=== PATIENT | female | born 1945 | race Caucasian/White ===

== ENCOUNTER 2023-05-07 11:34 | Day surgery (SDC) | payer MEDICARE, BC, SELFPAY ==
[2023-05-07 12:28] VITALS: BP 142/62; PULSE 60; RESP 16; TEMP 36.8; O2SAT 93
[2023-05-07 12:50] VITALS: BMI 37.8
--- NOTE | 2023-05-07 12:50 | ANES.PREOP_ITS ---
General Info Date of Service Date Performed: 05/07/23 Height: 5 ft Weight: 87.9 kg Body Mass Index (BMI): 37.8 Surgical Procedure: Operation Date: 05/07/23 13:40 Proposed Procedure Side Surgeon p Cataract Extraction with IOL Implant Left Andrew Gilliam MD Meds Allergies and Home Medications Allergies Allergy/AdvReac Type Severity Reaction Status Date / Time latex Allergy Intermediate Other (See Verified 05/07/23 12:19 Comment) oxycodone Allergy Intermediate Other (See Verified 05/07/23 12:19 Comment) adhesive bandage Allergy Intermediate Other (See Uncoded 05/07/23 12:19 Comment) Home Medication Medication Instructions Recorded acetaminophen 500 mg capsule 500 mg PO Q4H PRN 05/03/23 amlodipine 2.5 mg tablet 2.5 mg PO DAILY 05/03/23 aspirin 81 mg capsule 81 mg PO DAILY 05/03/23 atorvastatin 20 mg tablet 20 mg PO DAILY 05/03/23 cholecalciferol (vitamin D3) 25 25 mcg PO DAILY 05/03/23 mcg (1,000 unit) tablet (Vitamin D3) dapagliflozin propanediol 10 mg 10 mg PO DAILY 05/03/23 tablet (Farxiga) docusate sodium 100 mg capsule 100 mg PO DAILY 05/03/23 (Colace) duloxetine 30 mg capsule,delayed 30 mg PO DAILY 05/03/23 release (Cymbalta) metoprolol succinate 100 mg 100 mg PO DAILY 05/03/23 capsule sprinkle, ext. release 24 hr omeprazole 40 mg capsule,delayed 40 mg PO DAILY 05/03/23 release potassium chloride 20 mEq 20 meq PO DAILY 05/03/23 tablet,extended release (K-Tab) sacubitril 97 mg-valsartan 103 mg 1 tab PO BID 05/03/23 tablet (Entresto) torsemide 20 mg tablet 20 mg PO DAILY 05/03/23 Current Visit Medications: Current Medications Generic Name Dose Route Start Last Admin Trade Name Freq PRN Reason Stop Dose Admin Acetaminophen 1,000 mg 05/07/23 06:00 Acetaminophen 500 Mg Tab PO 06/06/23 05:59 Q4H PRN PRN Balanced Salt Solution 500 ml 05/07/23 06:00 Balanced Salt Soln.-Plus 500 Ml Bag OP 06/06/23 05:59 DIRECTED JEANNE Miscellaneous Medication 0 ml 05/07/23 06:00 Prednisolone 1%, Moxifloxacin 0.5%, Bromfenac 0.09% 5ml Btl OS 06/06/23 05:59 DIRECTED JEANNE Miscellaneous Medication 0 ml 05/07/23 06:00 05/07/23 12:47 Tropicam./Phenyleph. (1/2.5%) 10 Ml Btl OS 06/06/23 05:59 1 drp DIRECTED JEANNE Administration Tetracaine HCl 0 ml 05/07/23 06:00 Tetracaine 0.5% 4 Ml Btl OS 06/06/23 05:59 DIRECTED JEANNE PFSH Active Problems Active Problems: Problem Status Onset Code Posterior subcapsular age-related cataract of left eye H25.042 Cortical age-related cataract, left eye H25.012 Nuclear age-related cataract, left eye H25.12 Medical History Medical History Vitamin D deficiency Spinal stenosis in cervical region Osteopenia Primary central sleep apnea PAF (paroxysmal atrial fibrillation) Opioid-induced sleep disorder KACY (obstructive sleep apnea) Obesity Lumbosacral radiculopathy joint terminal attack controller (current) use of opiate analgesic Leg cramp Presence of total knee joint prosthesis Insomnia Hypertensive disorder Gastric reflux Fatigue Dry mouth Depressive disorder CHF (congestive heart failure) 05/2022 last seen by cardiology. Seen yearly Backache Atherosclerosis of coronary artery Non-rheumatic aortic stenosis Aortic heart murmur ACS (acute coronary syndrome) Surgical History Surgical History H/O breast surgery History of lumbosacral spine surgery Status post arthroscopic partial lateral meniscectomy of right knee History of total knee replacement (TKR) Cataract extraction status of right eye History of cardiac catheterization 2019 S/P fusion of sacroiliac joint Tobacco Smoking/Tobacco Use Status: Never Alcohol Alcohol Intake: current Alcohol intake frequency: holidays/special occasions only Substance Use Substance use: Never Substance use type: does not use Vital Signs and Lab Results Vital Signs Most Recent Vital Signs in EMR: Most Recent Vital Signs Temp Pulse Resp BP Pulse Ox 36.8 C 60 16 142/62 H 93 05/07/23 12:28 05/07/23 12:28 05/07/23 12:28 05/07/23 12:28 05/07/23 12:28 Lab Results Blood Type / Crossmatch: No Data to Display Complete Blood Count: No Data to Display Complete Metabolic Panel: No Data to Display Liver Function Panel: No Data to Display Coagulation Panel: No Data to Display Cardiac Panel: No Data to Display Arterial Blood Gas: No Data to Display Venous Blood Gas: No Data to Display Pancreas Panel: No Data to Display Thyroid Panel: No Data to Display Infectious Disease: No Data to Display Blood Cultures: No Data to Display Toxicology Panel: No Data to Display Anesthesia Assessment and Plan Anesthesia History Personal History: Delayed Emergence Family History: No Family History of Anesthesia Complications Exercise Tolerance Exercise Tolerance: Metabolic Equivalents>4 Pertinent Negatives Pertinent Negatives: No Symptoms of GERD Cardiac & Pulmonary Exam Cardiac Exam: Normal S1/S2 Heart Sounds Pulmonary Exam: Clear Bilateral Breath Sounds Implantable Cardiac Device Does patient have a Pacemaker or an ICD?: No Airway Exam Known Difficult Airway: No Mallampati Class: 1 Mouth Opening: Normal (> 3cm) Thyromental Distance: Less than 3 cm Neck Range of Motion: Full ROM Neck Circumference: Normal Teeth Condition: Normal Dentition ASA Classification ASA Score: ASA 3 Emergency Case?: No NPO Status NPO Status: NPO Clears >2 hours, Solids >8 hours Anesthesia Plan Resuscitation Status: Full Code Anesthesia Technique: MAC Anesthesia Airway Planned: Natural Airway Monitors Used: Standard Monitors
[2023-05-07] MEDS: Trypan Blue 0.06% 0.5 ML SYR (13:30)
[2023-05-07] MEDS: Duovisc Viscoelastic System EACH 1 EACH (13:31)
[2023-05-07] MEDS: Lidocaine 1% Pres-Free 5 ML VIAL (13:34)
[2023-05-07] MEDS: Povidone-Iodine Ophth 30 ML BTL (13:36)
[2023-05-07] MEDS: Balanced Salt Soln.-PLUS 500 ML BAG OP (13:37)
[2023-05-07 13:49] VITALS: BP 128/47; PULSE 61; RESP 16; TEMP 36.5; O2SAT 96
--- NOTE | 2023-05-07 14:03 | W.PM.DSUDISC ---
Date of service: 05/07/23 Time of Service: 14:03 Discharge Plan Disposition Patient Disposition: Home Discharge Details Attending Provider: Andrew Gilliam Primary Care Provider: Dwayne Boland Home Meds and New Rx's Prescriptions: No Action acetaminophen 500 mg capsule 500 mg PO Q4H PRN amlodipine 2.5 mg tablet 2.5 mg PO DAILY aspirin 81 mg capsule 81 mg PO DAILY docusate sodium [Colace] 100 mg capsule 100 mg PO DAILY atorvastatin 20 mg tablet 20 mg PO DAILY dapagliflozin propanediol [Farxiga] 10 mg tablet 10 mg PO DAILY duloxetine [Cymbalta] 30 mg capsule,delayed release(DR/EC) 30 mg PO DAILY Entresto 97-103 mg tablet 1 tab PO BID metoprolol succinate 100 mg capsule,sprinkle,ER 24hr 100 mg PO DAILY omeprazole 40 mg capsule,delayed release(DR/EC) 40 mg PO DAILY potassium chloride [K-Tab] 20 mEq tablet extended release 20 meq PO DAILY torsemide 20 mg tablet 20 mg PO DAILY cholecalciferol (vitamin D3) [Vitamin D3] 25 mcg (1,000 unit) tablet 25 mcg PO DAILY Discharge Instructions Stand Alone Forms: [facility] ([facility]) Discharge Orders Discharge Orders: Discharge Order (Routine); Ordered 05/07/23 Ordered By: Andrew Gilliam DS: Diagnosis Discharge Diagnosis (1) Posterior subcapsular age-related cataract of left eye: Status: Resolved (2) Cortical age-related cataract, left eye: Status: Resolved (3) Nuclear age-related cataract, left eye: Status: Resolved
--- NOTE | 2023-05-07 14:05 | W.PM.OP ---
Date of service: 05/07/23 Time of Service: 14:05 Operative Note Operative Note DATE OF PROCEDURE: 05/07/23 PRE-OP DIAGNOSIS: Nuclear/cortical/posterior subcapsular cataract, left eye POST-OP DIAGNOSIS: same PROCEDURE: Cataract extraction using phacoemulsification with intraocular lens implant, left eye SURGEON: Andrew Gilliam ANESTHESIA TYPE: Local By Surgeon and MAC Refer to Anesthesia Record PATHOLOGY: none sent COMPLICATIONS: None Patient was transported to: same day Patient's condition: stable Implants: [employer] [id number] Indications: Progressive decreased vision due to cataract, left eye Procedure Description: CATARACT SURGERY OPERATIVE REPORT PREOPERATIVE DIAGNOSIS: Nuclear/cortical/posterior subcapsular cataract, left eye POSTOPERATIVE DIAGNOSIS: Same OPERATION: Cataract extraction using phacoemulsification with posterior chamber intraocular lens implant, left eye. IOL: IOL Equip Maint Eng/Model: Chapito Clareon [id number] IOL Power: + 21.0 diopters IOL Serial Number: [id number] Optic Diameter: 6.0mm Haptic/Overall Diameter: 13.0mm PHACO INFO: [employer] Vision System with OZil and Active [employer]uidics Cumulative Dispersed Energy (CDE): 6.17 seconds SURGEON: Andrew Gilliam MD, HUMA ANESTHESIA: Monitored Anesthesia Care (MAC), with local sub-tenon's anesthetic infiltration COMPLICATIONS: None SPECIMENS: None INDICATIONS FOR PROCEDURE: The patient is a 78-year-old lady with history of diminished visual acuity in her left eye secondary to the development of nuclear/cortical/posterior subcapsular cataract. She has previously undergone cataract surgery in the right eye several years ago. She is significantly symptomatic with cataract in her left eye that she desires cataract surgery and attempt to improve and maximize her vision. See office notes for detailed information. PROCEDURE: The correct surgical eye was identified and marked as the left eye and the pupil was dilated in the preoperative area using mydriatics and cycloplegics. The dilated pupil size was 7.0 mm. The patient elected to proceed without oral sedation. The patient was brought to the operating room where cardiopulmonary monitoring was instituted and surgical time-out was performed, confirming the correct operative eye and IOL power. Topical anesthesia was administered and ophthalmic povidone-iodine 5% was instilled into the conjunctival fornices. The lewis-ocular area was prepped with Betadine 10% solution and draped in the usual sterile fashion for intraocular surgery, including an aperture drape. A Tegaderm transparent film dressing was cut in half and used to cover the lashes and lid margins. Care was taken to sequester the lashes and lid margins under the Tegaderm dressing. A lid speculum was placed between the lids of the operative eye and the [employer] operating microscope was maneuvered into position. Fortino scissors were then used to make a conjunctival buttonhole approximately 6mm posterior to the limbus in the inferonasal quadrant. Blunt dissection was carried out to expose bare sclera, and a blunt-tipped sub-tenon?s anesthesia cannula was introduced and passed posteriorly along the globe where non-preserved plain lidocaine was injected into posterior sub-Tenon?s space. A sideport knife was used to make a paracentesis port. Intraocular phenylephrine/lidocaine was injected into the anterior chamber. The anterior chamber was then filled with viscoelastic. A keratome knife was used construct a two-plane clear corneal tunnel extending 2.0mm into clear cornea. A flap was raised on the anterior capsule and capsulorhexis forceps were used to complete a continuous curvilinear capsulorhexis of 5.0 mm. Balanced salt solution was then used to perform cortical cleaving hydrodissection and nuclear hydrodelineation until the lens could be freely rotated within the capsular bag. The lens nucleus was then disassembled and removed within the capsular bag and iris plane using phacoemulsification. Residual cortical material was removed using the irrigation/aspiration handpiece. The posterior capsule was carefully polished to remove as much residual lens epithelial cells as safely possible. The capsular bag was then inflated and the anterior chamber deepened with viscoelastic. The lens implant described above was inserted into the capsular bag using the [employer] Injector. A Kuglen hook was used to dial the IOL into position. Residual viscoelastic was then removed first from posterior to the IOL, then from the anterior chamber using the I/A handpiece. The lens implant was noted to center nicely within the capsular bag. The incisions were stromally hydrated, and the anterior chamber was reformed using BSS. Then 0.5cc of moxifloxacin 1.0mg/ml were injected into the capsular bag and anterior chamber. The incisions were checked with a Weck spear and found to be secure. Several drops of ophthalmic povidone-iodine 5% were then applied to the eye followed by two drops of combination steroid/NSAID/antibiotic solution. The drapes were removed and a clear plastic protective eye shield was placed over the eye. The patient was then returned to [facility] Day Surgery in stable condition.
--- NOTE | 2023-05-07 14:09 | W.ANESPOSTOP ---
Postoperative Evaluation Date, Time and Location Date Performed: 05/07/23 Time Performed: 14:09 Patient Location: Day Surgery Unit Vital Signs Most Recent Imported Vital Signs: Most Recent Vital Signs Temp Pulse Resp BP Pulse Ox 36.5 C 61 16 128/47 L 96 05/07/23 13:49 05/07/23 13:49 05/07/23 13:49 05/07/23 13:49 05/07/23 13:49 Pain Score Most Recent Pain Score: Most Recent Pain Score Pain Level 0 05/07/23 13:49 Assessment Mental Status: Awake (Alert & Oriented to Patient Baseline) Airway and Respiratory Function: Patent airway with normal (patient baseline) respiratory exam Cardiovascular Function: Hemodynamically Stable Hydration Status: Adequately Hydrated Nausea & Vomiting: No Nausea or Vomiting Pain: Pt. Denies Any Pain Peripheral Nerve Block: Patient did not receive a nerve block
== END 2023-05-07 14:19 | disposition home or self-care (01) ==
LOC: SUR 11:34
PROVIDERS: PCP Family Medicine; Visit Provider Ophthalmology
PROC: (CPT 66984; principal; 2023-05-07 13:30)
DX: H25.042 Posterior subcapsular polar age-related cataract, left eye (principal); H25.012 Cortical age-related cataract, left eye; H25.12 Age-related nuclear cataract, left eye; I10 Essential (primary) hypertension; K21.9 Gastro-esophageal reflux disease without esophagitis; Z98.41 Cataract extraction status, right eye
CPT/HCPCS: 66984; 00123; V2632; J2003